=== PATIENT | male | born 2000 | race American Indian/Alaskan Native ===

== ENCOUNTER 2021-06-06 12:09 | Emergency (ER) | payer SELFPAY ==
[2021-06-06 15:12] VITALS: BP 131/68
[2021-06-06] MEDS ORDERED: ACETAMINOPHEN 325 MG TAB PO ONE (15:16)
[2021-06-06] MEDS ORDERED: IBUPROFEN 600 MG TAB PO ONE (15:16)
--- NOTE | 2021-06-06 15:21 | Emergency Department Report ---
Minor Respiratory - HPI Chief Complaint: Upper Respiratory Infection Stated Complaint: HEAD AND EYE PAIN Time Seen by Provider: 06/06/21 15:15 Duration: Today Severity: mild Minor Respiratory: Yes Rhinorrhea (nasal congestion, Frontal MAYO, pain behind eyes), No Sore Throat, No Able to Tolerate Fluids, No Ear Pain, No Cough, No Sick Contacts, No Hemoptysis, No Chest Pain, No Shortness of Breath, No Fever Other History: 20 year old male who denies any significant past medical hx presents ED with complaints of frontal MAYO and pain behind eyes. He states pain is throbbing and has been constant. He states he noticed it while at work today. He took aleve once but it did not help. He reports associated nasal congestion and rhinorrhea and postnasal drainage. He denies any cough, shortness of breath, fever, chills, neck pain, focal weakness, vision changes or any additional symptoms at this time ED Review of Systems ROS: Stated complaint: HEAD AND EYE PAIN Other details as noted in HPI Comment: All other systems reviewed and negative Constitutional: denies: chills, fever Eyes: denies: eye pain, eye discharge, vision change ENT: congestion, other (rhinorrhea ) Respiratory: denies: cough, shortness of breath, SOB with exertion, SOB at rest, wheezing Cardiovascular: denies: chest pain, palpitations Gastrointestinal: denies: abdominal pain, nausea, diarrhea, constipation, hematemesis, hematochezia Genitourinary: denies: urgency, dysuria, frequency, hematuria, discharge, testicular pain, testicular mass Musculoskeletal: denies: back pain, joint swelling, arthralgia, myalgia Skin: denies: rash, lesions, change in color, change in hair/nails, pruritus Neurological: headache. denies: numbness, paresthesias, confusion, abnormal gait, vertigo Psychiatric: denies: anxiety, depression, auditory hallucinations, visual mayo llucinations, homicidal thoughts, suicidal thoughts Hematological/Lymphatic: denies: easy bleeding, easy bruising, swollen glands ED Past Medical Hx - Past Medical History Previous Medical History?: No - Surgical History Past Surgical History?: No - Medications Home Medications: Home Medications Medication Instructions Recorded Confirmed Last Taken Type Cetirizine HCl [Zyrtec 10mg tab] 10 mg PO DAILY #30 tablet 06/06/21 Unknown Rx Fluticasone [Flonase] 2 spray NS QDAY #1 bottle 06/06/21 Unknown Rx Ketorolac [Toradol] 10 mg PO Q6H PRN #20 tablet 06/06/21 Unknown Rx Minor Respiratory Exam - Exam General: Vital signs noted. No distress. Alert and acting appropriately. HEENT: Yes Rhinorrhea, No Pharyngeal Erythema, No Pharyngeal Exudates, No Moist Mucous Membranes, No Conjuctival Injection, No Frontal Tenderness, No Maxillary Tenderness Ear: Neither TM Bulge, Neither TM Erythema, Neither EAC Pain, Neither EAC Discharge Neck: No Adenopathy, No Supple Lungs: Yes Good Air Exchange, No Wheezes, No Ronchi, No Stridor, No Cough, No La bored Respirations, No Retractions, No Use of Accessory Muscles, No Other Abnormal Lung Sounds Heart: Yes Regular, No Murmur Abdomen: No Tenderness, No Peritoneal Signs, No Normal Bowel Sounds Skin: No Rash, No Edema Neurologic: Alert and oriented, no deficits. Musculoskeletal: Unremarkable. ED Course Vital Signs 06/06/21 15:09 Temperature 99.8 F H Pulse Rate 96 H Respiratory 16 Rate Blood Pressure 131/68 [Left] O2 Sat by Pulse 96 Oximetry ED Medical Decision Making - Medical Decision Making The patient presented to the emergency department with a headache and URI symptoms since today. The patient is resting comfortably and feels better, is alert, talkative, interactive and in no distress. There is no respiratory distress and no signs of systemic toxicity. The patient appears well and and appear hydrated. The patient is neurologically intact, has a normal mental status, and is ambulatory in the ER. The history, exam, diagnostic testing and the patient's current condition does not suggest meningitis, stroke, intracranial bleeding, encephalitis, infectious process such as meningitis, severe pneumonia, ARDS with hypoxia, sepsis or other serious viral/bacterial infection or other significant pathology to warrant testing, continued ED treatment, admission, neurological consultation or other specialist evaluation at this point. The vital signs have been stable. Informed patient that his symptoms could likely be related to a viral illness including Covid and I do recommend an outpatient Covid test. In the meantime we will give medication for his symptoms. Patient expressed understanding agree with plan. The patient's condition is stable and appropriate for discharge. The patient will pursue further outpatient evaluation with the primary care physician. Critical care attestation.: If time is entered above; I have spent that time in minutes in the direct care of this critically ill patient, excluding procedure time. ED Disposition Clinical Impression: Viral URI, Headache Disposition: 01 HOME / SELF CARE / HOMELESS Is pt being admited?: No Does the pt Need Aspirin: No Condition: Stable Instructions: Viral Respiratory Infection Additional Instructions: Take the toradol as prescribed. Use the flonase and take the zyrtec as prescribed. I do recommend that you get a outpatient COVID 19 test as this could be cause of your symptoms. I recommend lots of fluids. Take a multivitamin containing vit C, zinc and Vit D. Follow up with your PCP. Return to ED if worse. Prescriptions: Fluticasone [Flonase] 2 spray NS QDAY #1 bottle Ketorolac [Toradol] 10 mg PO Q6H PRN #20 tablet PRN Reason: Pain Cetirizine HCl [Zyrtec 10mg tab] 10 mg PO DAILY #30 tablet Referrals: [facility] [Provider Group] - 3-5 Days Forms: Work/School Release Form(ED) Time of Disposition: 15:22
== END 2021-06-06 16:05 | disposition home or self-care (01) ==
LOC: ED 12:09
DX: J06.9 Acute upper respiratory infection, unspecified (principal); R51.9 Headache, unspecified
CPT/HCPCS: 99282

== ENCOUNTER 2021-06-10 | Emergency (ER) | payer SELFPAY ==
[2021-06-10 02:03] VITALS: BP 134/62
--- NOTE | 2021-06-10 03:37 | Emergency Department Report ---
ED Male HPI - General Chief complaint: Urogenital-Male Stated complaint: STD CHECK Source: patient Mode of arrival: Ambulatory Limitations: No Limitations - History of Present Illness Initial comments: Patient is a 20-year-old -[place] male with no past medical history who presented to the ED requesting to be treated for trichomonas since his sexual partner was also diagnosed with the same a few days ago. Patient states that he has been experiencing tingling sensation in his penis. Patient denies dysuria, urinary frequency and urgency, penile discharge, testicular pain, fever, chills, cough, sore throat or dizziness. MD Complaint: dysuria (Pain and itching, sexual partner diagnosed with trichomonas), other (Penile itching) -: Sudden, week(s) (1) Location: penis Radiation: none Severity: mild Severity scale (0 -10): 0 Quality: dull Consistency: intermittent Improves with: none Worsens with: none denies other symptoms - Related Data Sexually active: Yes Previous Rx's Medication Instructions Recorded Last Taken Type Cetirizine HCl [Zyrtec 10mg tab] 10 mg PO DAILY #30 tablet 06/06/21 Unknown Rx Fluticasone [Flonase] 2 spray NS QDAY #1 bottle 06/06/21 Unknown Rx Ketorolac [Toradol] 10 mg PO Q6H PRN #20 tablet 06/06/21 Unknown Rx Ondansetron [Zofran Odt] 4 mg PO Q6HR PRN #10 tab.rapdis 06/10/21 Unknown Rx metroNIDAZOLE [Flagyl] 2,000 mg PO Q8HR #4 tablet 06/10/21 Unknown Rx Allergies Allergy/AdvReac Type Severity Reaction Status Date / Time No Known Allergies Allergy Verified 06/10/21 02:04 ED Review of Systems ROS: Stated complaint: STD CHECK Other details as noted in HPI Constitutional: denies: chills, fever Eyes: denies: eye pain, eye discharge, vision change ENT: denies: ear pain, throat pain Respiratory: denies: cough, shortness of breath, wheezing Cardiovascular: denies: chest pain, palpitations Endocrine: no symptoms reported Gastrointestinal: denies: abdominal pain, nausea, diarrhea Genitourinary: other (Penile tingling sensation). denies: urgency, dysuria, frequency, hematuria, discharge, testicular pain, testicular mass Musculoskeletal: denies: back pain, joint swelling, arthralgia Skin: denies: rash, lesions Neurological: denies: headache, weakness, paresthesias Psychiatric: denies: anxiety, depression Hematological/Lymphatic: denies: easy bleeding, easy bruising ED Past Medical Hx - Past Medical History Previous Medical History?: No Hx Headaches / Migraines: Yes - Surgical History Past Surgical History?: No - Medications Home Medications: Home Medications Medication Instructions Recorded Confirmed Last Taken Type Cetirizine HCl [Zyrtec 10mg tab] 10 mg PO DAILY #30 tablet 06/06/21 Unknown Rx Fluticasone [Flonase] 2 spray NS QDAY #1 bottle 06/06/21 Unknown Rx Ketorolac [Toradol] 10 mg PO Q6H PRN #20 tablet 06/06/21 Unknown Rx Ondansetron [Zofran Odt] 4 mg PO Q6HR PRN #10 tab.rapdis 06/10/21 Unknown Rx metroNIDAZOLE [Flagyl] 2,000 mg PO Q8HR #4 tablet 06/10/21 Unknown Rx ED Physical Exam - General Limitations: No Limitations General appearance: alert, in no apparent distress - Head Head exam: Present: atraumatic, normocephalic - Eye Eye exam: Present: normal appearance Pupils: Present: normal accommodation - ENT ENT exam: Present: normal exam, normal orophraynx, mucous membranes moist, TM's normal bilaterally, normal external ear exam - Neck Neck exam: Present: normal inspection, full ROM - Respiratory Respiratory exam: Present: normal lung sounds bilaterally. Absent: respiratory distress, wheezes, rales, chest wall tenderness, decreased breath sounds - Cardiovascular Cardiovascular Exam: Present: regular rate, normal rhythm, normal heart sounds. Absent: systolic murmur, diastolic murmur, rubs, gallop - GI/Abdominal GI/Abdominal exam: Present: soft, normal bowel sounds. Absent: tenderness, guarding, rebound, hyperactive bowel sounds, hypoactive bowel sounds - External exam: Present: other (Genital exam deferred at this time) - Extremities Exam Extremities exam: Present: normal inspection, full ROM, normal capillary refill - Back Exam Back exam: Present: normal inspection, full ROM. Absent: tenderness, CVA tenderness (R), CVA tenderness (L), muscle spasm, paraspinal tenderness - Neurological Exam Neurological exam: Present: alert, oriented X3, CN II-XII intact, normal gait, reflexes normal - Psychiatric Psychiatric exam: Present: normal affect, normal mood, anxious - Skin Skin exam: Present: warm, dry, intact, normal color. Absent: rash ED Course Vital Signs 06/10/21 02:02 Temperature 98.6 F Pulse Rate 64 Respiratory 18 Rate Blood Pressure 134/62 O2 Sat by Pulse 100 Oximetry ED Medical Decision Making - Medical Decision Making This is a 20-year-old -[place] male with no past medical history who presented to the ED requesting to be treated for trichomonas since his sexual partner was also diagnosed with the same a few days ago. Patient states that he has been experiencing tingling sensation in his penis. In the ED, patient is alert and oriented x3 and is not in any distress. Patient was discharged home on oral Flagyl empirically since her sexual partner was confirmed recently to have had trichomonas and treated. Patient was advised to observe and maintain safe sexual practices and to follow-up with the [facility] for further STD testing including HIV, chlamydia and gonorrhea and syphilis. - Differential Diagnosis Trichomonas infection; STD; UTI; gonorrhea; chlamydia Critical care attestation.: If time is entered above; I have spent that time in minutes in the direct care of this critically ill patient, excluding procedure time. ED Disposition Clinical Impression: Trichomonas exposure, STD (sexually transmitted disease) Disposition: HOME / SELF CARE / HOMELESS Is pt being admited?: No Does the pt Need Aspirin: No Condition: Stable Instructions: Trichomoniasis, Safe Sex Additional Instructions: Take medication as advised, drink plenty of fluids, observe safe sexual practices and follow-up with [facility] for further STD evaluation including HIV, gonorrhea, chlamydia and syphilis. Prescriptions: metroNIDAZOLE [Flagyl] 2,000 mg PO Q8HR #4 tablet Ondansetron [Zofran Odt] 4 mg PO Q6HR PRN #10 tab.rapdis PRN Reason: Nausea Referrals: [facility] [Outside] - 3-5 Days Time of Disposition: 03:36 Print Language: AFGHAN
== END 2021-06-10 06:00 | disposition home or self-care (01) ==
LOC: ED
DX: R30.0 Dysuria (principal); R20.2 Paresthesia of skin; Z20.2 Contact with and (suspected) exposure to infections with a predominantly sexual mode of transmission
CPT/HCPCS: 99282

== ENCOUNTER 2021-07-10 17:42 | Emergency (ER) | payer SELFPAY ==
[2021-07-10 18:23] VITALS: BP 115/76
== END 2021-07-10 23:18 | disposition left against medical advice (07) ==
LOC: ED 17:42
DX: Z00.00 Encounter for general adult medical examination without abnormal findings (principal); Z53.21 Procedure and treatment not carried out due to patient leaving prior to being seen by health care provider